=== PATIENT | male | born 1970 | race American Indian/Alaskan Native ===

== ENCOUNTER 2017-07-24 08:35 | Emergency (ER) | payer OTHER ==
[2017-07-24 09:31] LABS: Basophils % (Auto) 0.4 % (0.0-1.8); Eosinophils % (Auto) 2.2 % (0.0-4.3); Hematocrit 42.6 % (35.5-45.6); Hemoglobin 14.8 gm/dl (11.8-15.2); Mean Corpuscular HGB Conc 35 % (32-34); Mean Corpuscular Hemoglobin 33 pg (28-32); Mean Corpuscular Volume 96 fl (84-94); Platelet Count 259 K/mm3 (140-440); Red Blood Count 4.45 M/mm3 (3.65-5.03); Red Cell Distribution Width 13.1 % (13.2-15.2); White Blood Count 7.4 K/mm3 (4.5-11.0)
[2017-07-24 09:49] LABS: Anion Gap 22 mmol/L; BUN/Creatinine Ratio 16; Blood Urea Nitrogen 26 mg/dL (9-20); Calcium 9.4 mg/dL (8.4-10.2); Carbon Dioxide 28 mmol/L (22-30); Chloride 96.2 mmol/L (98-107); Glucose 128 mg/dL (75-100); Potassium 4.3 mmol/L (3.6-5.0); Sodium 142 mmol/L (137-145)
--- NOTE | 2017-07-24 10:29 | Emergency Department Report ---
Chief Complaint: Dizziness Stated Complaint: DIZZINESS Time Seen by Provider: 07/24/17 10:24 - [facility] History of Present Illness: Patient is a 46-year-old male with a recent diagnosis of high blood pressure while he was incarcerated presents to ED complaining of intermittent dizziness earlier today while he was at work. Patient states he was working when the first incidence of dizziness occurred. Patient states he sat down for a while bottle of water and his dizziness did not resolve so he was told to come to the ED. patient states he takes no medication and states that he was given some blood pressure medication while he was in [facility] in the last He took was Sunday. Patient states he was unaware of what he was being given so he is unable to get the medication. He denies fever/chills/nausea/vomiting/abdominal pain/chest pain/shortness of breath or headache - ROS Review of Systems: As noted in HPI - Exam Vital Signs: Vital Signs 07/24/17 08:47 Temperature 96.4 F L Pulse Rate 76 Respiratory 16 Rate Blood Pressure 104/63 O2 Sat by Pulse 99 Oximetry Physical Exam: GENERAL: Alert and oriented x3, no apparent distress, Normal Gait, atraumatic. EYES: Extra ocular muscles are intact. Pupils are equal, round, and reactive to light and accommodation, no nystagmus visualized LUNGS: Symetrical with respiration, HEART: S1, S2 present, regular rate and rhythm, no rubs, no gallops. Non tender to palpation NEUROLOGIC: The patient is cooperative with no focal neurologic deficits. Normal speech. , No facial droop, SKIN: Warm and dry, No lesions, No ulceration or induration present. MSE screening note: Focused history and physical exam performed. Due to findings the following was ordered: ED Medical Decision Making - Lab Data Result diagrams: 07/24/17 09:02 07/24/17 09:02 - Medical Decision Making Patient is in no acute distress Labs ordered. Patient was seen by the physician. ED Disposition for MSE Condition: Stable Referrals: PRIMARY CARE, [Primary Care Provider] - 3-5 Days
[2017-07-24] MEDS ORDERED: NACL 0.9% 1000 ML 1,000 ML IV ONE (11:11)
--- NOTE | 2017-07-24 11:24 | Emergency Department Report ---
ED Dizziness HPI - General Chief Complaint: Dizziness Stated Complaint: DIZZINESS Time Seen by Provider: 07/24/17 10:24 Source: patient, EMS Mode of arrival: Ambulatory Limitations: No Limitations - History of Present Illness Initial Comments: 71-zif[place]-oyk-year-old male with no significant past medical history cystoscopy lightheadedness episode while at work. Patient works on his feet. He was stacking light boxes and began to feel lightheaded. Patient drank a bottle water thickened that will help his symptoms that they continue. Patient had to sit down and was pale. 2 episodes of vomiting while. In route they should complain of a pressure and a knot sensation on the left upper quadrant. It is described as feeling like something is 2l of his chest. That has since resolved and patient is asymptomatic. Patient denies any recent melena, hematochezia, diarrhea, fever, or poor by mouth intake. - Related Data Allergies Allergy/AdvReac Type Severity Reaction Status Date / Time No Known Allergies Allergy Unverified 07/24/17 08:54 ED Review of Systems ROS: Stated complaint: DIZZINESS Other details as noted in HPI Comment: All other systems reviewed and negative Other: Constitutional: No fevers chills Eyes: No eye pain visual changes ENT: No ear pain or throat pain Neck: Denies pain Respiratory: Denies cough wheezing shortness of breath Cardiovascular: Denies chest pain, palpitation GI: Denies abdominal pain, nausea, vomiting, diarrhea : Denies dysuria Musculoskeletal: Denies back pain Skin: Denies rash, lesions, erythema Neurologic: Denies headache, numbness, weakness Psychiatric: Denies suicidal ideation, hallucinations ED Past Medical Hx - Past Medical History Previous Medical History?: No - Surgical History Past Surgical History?: No - Social History Smoking Status: Current Every Day Smoker Substance Use Type: None ED Physical Exam - General Limitations: No Limitations - Other Other exam information: General: No limitations, patient is alert in no acute distress Head exam: Atraumatic, normocephalic Eyes exam: Normal appearance, pupils equal reactive to light, extraocular movements intact ENT: Moist mucous membrane Neck exam: Normal inspection, full range of motion, no meningismus nontender Respiratory exam: Clear to auscultation bilateral, no wheezes, rales, crackles Cardiovascular: Normal rate and rhythm, normal heart sounds Abdomen: Soft, nondistended, and nontender, with normal bowel sounds, no rebound, or guarding Extremity: Full range of motion normal inspection no deformity Back: Normal Inspection, full range of motion, no tenderness Neurologic: Alert, oriented x3, cranial nerves intact, no motor or sensory deficit Psychiatric: normal affect, normal mood Skin: Warm, dry, intact ED Course Vital Signs 07/24/17 07/24/17 07/24/17 08:47 11:05 11:21 Temperature 96.4 F L 98.1 F Pulse Rate 76 95 H Pulse Rate [ 76 Lying] Respiratory 16 14 Rate Blood Pressure 104/63 Blood Pressure 108/75 [Lying] Blood Pressure 108/75 [Right] O2 Sat by Pulse 99 100 Oximetry 07/24/17 11:32 Temperature Pulse Rate 90 Pulse Rate [ Lying] Respiratory 14 Rate Blood Pressure Blood Pressure [Lying] Blood Pressure [Right] O2 Sat by Pulse 98 Oximetry - Reevaluation(s) Reevaluation #1: 07/24/17 14:02 Positive orthostatic vital signs with significant increase in heart rate with standing. Patient received 1 L normal saline in the ED ED Medical Decision Making - Lab Data Result diagrams: 07/24/17 09:02 07/24/17 09:02 Lab Results 07/24/17 07/24/17 Range/Units 09:02 09:02 WBC 7.4 (4.5-11.0) K/mm3 RBC 4.45 (3.65-5.03) M/mm3 Hgb 14.8 (11.8-15.2) gm/dl Hct 42.6 (35.5-45.6) % MCV 96 H (84-94) fl MCH 33 H (28-32) pg MCHC 35 H (32-34) % RDW 13.1 L (13.2-15.2) % Plt Count 259 (140-440) K/mm3 Lymph % (Auto) 16.8 (13.4-35.0) % [place] % (Auto) 7.4 H (0.0-7.3) % Eos % (Auto) 2.2 (0.0-4.3) % Baso % (Auto) 0.4 (0.0-1.8) % Lymph # 1.2 (1.2-5.4) K/mm3 [place] # 0.5 (0.0-0.8) K/mm3 Eos # 0.2 (0.0-0.4) K/mm3 Baso # 0.0 (0.0-0.1) K/mm3 Seg Neutrophils % 73.2 H (40.0-70.0) % Seg Neutrophils # 5.4 (1.8-7.7) K/mm3 Sodium 142 (137-145) mmol/L Potassium 4.3 (3.6-5.0) mmol/L Chloride 96.2 L (98-107) mmol/L Carbon Dioxide 28 (22-30) mmol/L Anion Gap 22 mmol/L BUN 26 H (9-20) mg/dL Creatinine 1.6 H (0.8-1.5) mg/dL Estimated GFR 57 ml/min BUN/Creatinine Ratio 16 % Glucose 128 H (75-100) mg/dL Calcium 9.4 (8.4-10.2) mg/dL Troponin T < 0.010 (0.00-0.029) ng/mL - EKG Data -: EKG Interpreted by Mt EKG shows normal: sinus rhythm, axis (qrs 84 ), QRS complexes (461, qtc 505), ST -T waves (no stemi/t wave inv, pvc's) Rate: normal - Medical Decision Making Patient had positive orthostatic vital signs as indicated by increased heart rate with standing. The patient also had dark discoloration a urine with elevated specific gravity and ketones indicating dehydration. Patient has mild renal insufficiency which could be secondary to dehydration. Patient received 1 L normal saline in the ED. He reports feeling better and is asymptomatic. He denies urinary symptoms, dysuria, penile discharge, or testicular pain. Patient recovered with antibiotic for several days. Encouraging to drink plenty of fluids. PMD and nephrology follow-up suggest due to mild renal insufficiency. - Differential Diagnosis dehydration, anemia, arrhythmia, vasovagal Critical Care Time: No Critical care attestation.: If time is entered above; I have spent that time in minutes in the direct care of this critically ill patient, excluding procedure time. ED Disposition Clinical Impression: Dehydration, Lightheaded, Mild renal insufficiency Disposition: DC-01 TO HOME OR SELFCARE Is pt being admited?: No Does the pt Need Aspirin: No Condition: Stable Instructions: Dehydration (ED), Impaired Kidney Function (ED) Additional Instructions: Continued to drink plenty of fluids while at home. Follow up with a primary care doctor and kidney specialist for further monitoring of your mildly abnormal kidney function. Take a copy of the laboratory results provided to you follow-up visits. Please return if symptoms worsen. Referrals: SUPA WAGONER MD [Staff Physician] - 2-3 Days (Kidney specialist) [facility] [Provider Group] - 2-3 Days (Primary care clinic) Time of Disposition: 14:11
[2017-07-24 12:28] LABS: Urine Drugs of Abuse Note Disclamer
[2017-07-24 12:48] LABS: Bacteria,Urine 1+ /HPF (Negative); Bilirubin,Urine NEG (Negative); Blood,Urine NEG (Negative); Granular Casts,Urine 1 /LPF; Ketones,Urine TR mg/dL (Negative); Leukocyte Esterase,Urine NEG (Negative); Mucus,Urine 3+ /HPF; Nitrite,Urine NEG (Negative)
[2017-07-24] MEDS ORDERED: MACROBID PO ONE (14:14)
[2017-07-24 14:31] VITALS: BP 116/80
== END 2017-07-24 14:31 | disposition home or self-care (01) ==
LOC: ED 08:35
DX: E86.0 Dehydration (principal); R42 Dizziness and giddiness; N28.9 Disorder of kidney and ureter, unspecified; F17.200 Nicotine dependence, unspecified, uncomplicated
CPT/HCPCS: 36415; 80048; 80307; 81001; 83735; 84484; 85025; 93005; 93010; 96360; 99284; J7030

== ENCOUNTER 2019-05-04 09:02 | Emergency (ER) | payer SELFPAY ==
[2019-05-04 09:25] VITALS: BP 144/92
[2019-05-04] MEDS ORDERED: NACL 0.9% 1000 ML 1,000 ML IV ONE (09:26)
--- NOTE | 2019-05-04 09:41 | Emergency Department Report ---
ED Dizziness HPI - General Chief Complaint: Dizziness Stated Complaint: GENERAL WEAKNESS Time Seen by Provider: 05/04/19 09:18 Source: patient Mode of arrival: Stretcher Limitations: No Limitations - History of Present Illness Initial Comments: 48-year-old male presents to ED with complaint of dizziness, lightheadedness. Patient states he ran at work this morning and began to feel lightheaded, as if he is going to pass out. Patient states he has a history of hypertension, not currently on blood pressure medication, assumed his blood pressure might be elevated. Patient states a coworker gave him a banana to eat, stating that bananas are good for high blood pressure. Patient states he ate a banana, but vomited afterwards. Denies feeling nauseated prior to eating the banana. Patient denies headache, chest pain, shortness of breath, diarrhea, fever, abdominal pain. Patient denies tobacco, alcohol, drug use. MD Complaint: dizziness, lightheadedness -: This morning Description: lightheadedness History of Same: No History of Trauma: No Severity: moderate Improves With: nothing Worsens With: nothing Associated Symptoms: denies: ataxia, chest pain, fever/chills, shortness of breath - Related Data Previous Rx's Medication Instructions Recorded Last Taken Type Nitrofurantoin Monohyd/M-Cryst 100 mg PO BID #10 capsule 07/24/17 Unknown Rx [Macrobid 100 mg Capsule] Amlodipine Besylate [Norvasc] 5 mg PO QDAY #30 tablet 05/04/19 Unknown Rx Naproxen [Naprosyn] 500 mg PO BID #20 tablet 05/04/19 Unknown Rx Allergies Allergy/AdvReac Type Severity Reaction Status Date / Time No Known Allergies Allergy Unverified 07/24/17 08:54 ED Review of Systems ROS: Stated complaint: GENERAL WEAKNESS Other details as noted in HPI Comment: All other systems reviewed and negative Constitutional: denies: chills, fever ENT: dental pain Respiratory: denies: shortness of breath Cardiovascular: denies: chest pain Gastrointestinal: vomiting. denies: abdominal pain, nausea, diarrhea Neurological: denies: headache, weakness, numbness, abnormal gait, vertigo ED Past Medical Hx - Past Medical History Previous Medical History?: Yes Hx Hypertension: Yes Hx Asthma: Yes (childhood) - Surgical History Past Surgical History?: No - Social History Smoking Status: Current Every Day Smoker Substance Use Type: None - Medications Home Medications: Home Medications Medication Instructions Recorded Confirmed Last Taken Type Nitrofurantoin Monohyd/M-Cryst 100 mg PO BID #10 capsule 07/24/17 Unknown Rx [Macrobid 100 mg Capsule] Amlodipine Besylate [Norvasc] 5 mg PO QDAY #30 tablet 05/04/19 Unknown Rx Naproxen [Naprosyn] 500 mg PO BID #20 tablet 05/04/19 Unknown Rx ED Physical Exam - General Limitations: No Limitations General appearance: alert, in no apparent distress - Head Head exam: Present: atraumatic, normocephalic - Eye Eye exam: Present: normal appearance, PERRL, EOMI - ENT ENT exam: Present: mucous membranes moist - Neck Neck exam: Present: normal inspection - Respiratory Respiratory exam: Present: normal lung sounds bilaterally. Absent: respiratory distress - Cardiovascular Cardiovascular Exam: Present: regular rate, normal rhythm - GI/Abdominal GI/Abdominal exam: Present: soft. Absent: distended, tenderness - Extremities Exam Extremities exam: Present: normal inspection. Absent: pedal edema, calf tenderness - Neurological Exam Neurological exam: Present: alert, oriented X3, CN II-XII intact. Absent: motor sensory deficit - Psychiatric Psychiatric exam: Present: normal affect, normal mood - Skin Skin exam: Present: warm, dry, intact, normal color ED Course Vital Signs 05/04/19 05/04/19 09:14 09:18 Temperature 98.1 F Pulse Rate 84 Pulse Rate [ 84 Lying] Pulse Rate [ 80 Sitting] Pulse Rate [ 88 Standing] Respiratory 16 Rate Blood Pressure 150/99 Blood Pressure 144/92 [Lying] Blood Pressure 149/97 [Sitting] Blood Pressure 120/98 [Standing] O2 Sat by Pulse 98 Oximetry ED Medical Decision Making - Lab Data Result diagrams: 05/04/19 09:39 05/04/19 09:27 - EKG Data -: EKG Interpreted by Me EKG shows normal: sinus rhythm, axis, ST-T waves - EKG Data When compared to previous EKG there are: no significant change (compared to 07/2017) Interpretation: other (RBBB present) - Radiology Data Radiology results: report reviewed, image reviewed - Medical Decision Making 48 yo M with dizziness, lightheadedness while at work. Pt has no neuro deficits on exam. Mildly hypertensive w/ initial BP 150/99. Pt did appear to be orthostatic with a drop in SBP from 149 to 120 and HR increase from 80 to 88 with standing. IV fluids given. Labs normal. EKG shows RBBB with no ST changes. RBBB is stable from 2017. Pt reports feeling much better following the IV fluids. BP 160s/90s currently. Has hx of HTN, not currently on any medication. Will prescribe norvasc. Advised outpt follow-up. Return precautions given. - Differential Diagnosis dehydration, arrythmia, infection Critical care attestation.: If time is entered above; I have spent that time in minutes in the direct care of this critically ill patient, excluding procedure time. ED Disposition Clinical Impression: Dizziness Disposition: DC- TO HOME OR SELFCARE Is pt being admited?: No Condition: Stable Instructions: Hypertension (ED), Near Syncope (ED), Lightheadedness (ED), Toothache (ED) Prescriptions: Naproxen [Naprosyn] 500 mg PO BID #20 tablet Amlodipine Besylate [Norvasc] 5 mg PO QDAY #30 tablet Referrals: RODRÍGUEZ AVITIA MD [Primary Care Provider] - 3-5 Days [facility] [Outside] - 3-5 Days [facility] [Outside] - 3-5 Days Time of Disposition: 10:57
--- NOTE | 2019-05-04 09:47 | XRay Report ---
CHEST 1 VIEW INDICATION / CLINICAL INFORMATION: weakness. COMPARISON: None available. FINDINGS: SUPPORT DEVICES: None. HEART / MEDIASTINUM: No significant abnormality. LUNGS / PLEURA: No significant pulmonary or pleural abnormality. No pneumothorax. ADDITIONAL FINDINGS: No significant additional findings. IMPRESSION: 1. No acute findings. Signer Name: Hattie Lara MD Signed: 05/04/2019 9:42 AM Workstation Name: [id number]
[2019-05-04 09:49] LABS: Basophils % (Auto) 0.4 % (0.0-1.8); Eosinophils # (Auto) 0.2 K/mm3 (0.0-0.4); Eosinophils % (Auto) 2.8 % (0.0-4.3); Hematocrit 41.3 % (35.5-45.6); Hemoglobin 14.1 gm/dl (11.8-15.2); Lymphocytes # (Auto) 0.6 K/mm3 (1.2-5.4); Lymphocytes % (Auto) 7.8 % (13.4-35.0); Mean Corpuscular HGB Conc 34 % (32-34); Mean Corpuscular Volume 97 fl (84-94); Monocytes # (Auto) 0.7 K/mm3 (0.0-0.8); Monocytes % (Auto) 8.3 % (0.0-7.3); Platelet Count 264 K/mm3 (140-440); Red Blood Count 4.27 M/mm3 (3.65-5.03); Red Cell Distribution Width 13.8 % (13.2-15.2)
[2019-05-04 10:01] LABS: INR 1.14 (0.87-1.13); Partial Thromboplastin Time 21.3 Sec. (24.2-36.6)
--- NOTE | 2019-05-04 10:06 | Cat Scan Report ---
CT HEAD WITHOUT CONTRAST INDICATION : dizziness. TECHNIQUE: Axial, coronal and sagittal CT imaging was performed from the skull apex through the skul l base without contrast. All CT scans at this location are performed using CT dose reduction for ALA RA by means of automated exposure control. COMPARISON: None available. FINDINGS: PARENCHYMA: No mass, midline shift, hemorrhage, extraaxial collection or acute territorial infarctio n. VENTRICLES: Symmetric and normal in size. SOFT TISSUES: Soft tissues including the orbits appear normal. BONES: No acute osseous abnormality. SINUSES: No significant abnormality. ADDITIONAL FINDINGS: None. IMPRESSION: No acute intracranial abnormality. Signer Name: Dontrell Gustafson MD Signed: 05/04/2019 10:01 AM Workstation Name: [id number]
[2019-05-04 10:11] LABS: BUN/Creatinine Ratio 11; Blood Urea Nitrogen 13 mg/dL (9-20); Hemolysis Index 9
[2019-05-04] MEDS ORDERED: IBUPROFEN PO ONE (11:16)
[2019-05-04] MEDS ORDERED: IBUPROFEN ONE (11:17)
== END 2019-05-04 11:17 | disposition home or self-care (01) ==
LOC: ED 09:02
DX: R42 Dizziness and giddiness (principal); I10 Essential (primary) hypertension; J45.909 Unspecified asthma, uncomplicated; F17.200 Nicotine dependence, unspecified, uncomplicated
CPT/HCPCS: 36415; 70450; 71045; 80048; 84484; 85025; 85610; 85730; 93005; 93010; 96360; 99285; J7030

== ENCOUNTER 2020-12-10 21:31 | Emergency (ER) | payer OTHER ==
[2020-12-10 23:17] VITALS: BP 138/96
--- NOTE | 2020-12-10 23:55 | XRay Report ---
RIGHT SHOULDER 3 VIEWS INDICATION / CLINICAL INFORMATION: right shoulder pain COMPARISON: None available. FINDINGS: BONES / JOINT(S): No acute fracture or subluxation. No significant arthritis. SOFT TISSUES: No significant abnormality. ADDITIONAL FINDINGS: None. Signer Name: Harsha Mujica MD Signed: 12/10/2020 11:51 PM Workstation Name: [id number]
--- NOTE | 2020-12-11 00:27 | Emergency Department Report ---
ED Upper Extremity Inj HPI - General Chief Complaint: Shoulder Injury Stated Complaint: FALL Source: patient Mode of arrival: Ambulatory Limitations: No Limitations - History of Present Illness Initial Comments: 50-year-old -[place] male presents to the emergency room complaining of right shoulder pain. Patient states his pain has been going on for over a month. Patient reports he been taken Tylenol. He states he had a fall over a month ago. This is his first time being seen for this. He denies any limitations to his shoulder. Denies any weakness. Has a history of hypertension blood pressure stable in triage. MD Complaint: Injury to:: right, shoulder Onset/Timin -: month(s) Other Extremity Injury: Shoulder: Right Other Injuries: none Handedness: right Improves With: none Worsens With: none Context: fall (Over a month ago) Associated Symptoms: denies other symptoms Treatments Prior to Arrival: other (Tylenol) - Related Data Previous Rx's Medication Instructions Recorded Last Taken Type Nitrofurantoin Monohyd/M-Cryst 100 mg PO BID #10 capsule 07/24/17 Unknown Rx [Macrobid 100 mg Capsule] Amlodipine Besylate [Norvasc] 5 mg PO QDAY #30 tablet 05/04/19 Unknown Rx Naproxen [Naprosyn] 500 mg PO BID #20 tablet 05/04/19 Unknown Rx Allergies Allergy/AdvReac Type Severity Reaction Status Date / Time No Known Allergies Allergy Unverified 07/24/17 08:54 ED Review of Systems ROS: Stated complaint: FALL Other details as noted in HPI ED Past Medical Hx - Past Medical History Previous Medical History?: Yes Hx Hypertension: Yes Hx Asthma: Yes (childhood) - Surgical History Past Surgical History?: No - Social History Smoking Status: Current Every Day Smoker Substance Use Type: None - Medications Home Medications: Home Medications Medication Instructions Recorded Confirmed Last Taken Type Nitrofurantoin Monohyd/M-Cryst 100 mg PO BID #10 capsule 07/24/17 Unknown Rx [Macrobid 100 mg Capsule] Amlodipine Besylate [Norvasc] 5 mg PO QDAY #30 tablet 05/04/19 Unknown Rx Naproxen [Naprosyn] 500 mg PO BID #20 tablet 05/04/19 Unknown Rx ED Physical Exam - General Limitations: No Limitations General appearance: alert, in no apparent distress - Head Head exam: Present: atraumatic, normocephalic - Eye Eye exam: Present: normal appearance - ENT ENT exam: Present: mucous membranes moist - Neck Neck exam: Present: normal inspection - Respiratory Respiratory exam: Present: normal lung sounds bilaterally. Absent: chest wall tenderness, accessory muscle use - Cardiovascular Cardiovascular Exam: Present: regular rate, normal rhythm. Absent: systolic murmur, diastolic murmur, rubs, gallop - Expanded Upper Extremity Exam Right Shoulder Exam: Present: normal inspection, full ROM. Absent: tenderness, swelling, abrasion, deformity, crepidus, dislocation, tenderness over AC joint Upper Arm exam: Present: normal inspection, full ROM. Absent: tenderness, swelling, crepidus Elbow exam: Present: normal inspection, full ROM. Absent: tenderness Forearm Wrist exam: Present: normal inspection, full ROM. Absent: tenderness Hand Wrist exam: Present: normal inspection. Absent: full ROM, tenderness - Back Exam Back exam: Present: normal inspection, full ROM - Neurological Exam Neurological exam: Present: alert, oriented X3, normal gait - Psychiatric Psychiatric exam: Present: normal affect, normal mood - Skin Skin exam: Present: warm, dry, intact, normal color. Absent: rash ED Course Vital Signs 12/10/20 23:00 Temperature 98.2 F Pulse Rate 62 Respiratory 18 Rate Blood Pressure 138/96 O2 Sat by Pulse 100 Oximetry ED Medical Decision Making - Radiology Data Radiology results: report reviewed [facility] [address] [place] [address] XRay Report Signed Patient: TAB BLANCHARD MR#: [id number] : 1970 Acct:[id number] Age/Sex: 50 / M ADM Date: 12/10/20 Loc: ED Attending Dr: Ordering Physician: JAQUI BURTON MD Date of Service: 12/10/20 Procedure(s): XR shoulder 2+V RT Accession Number(s): [id number] cc: JAQUI BURTON MD Fluoro Time In Minutes: RIGHT SHOULDER 3 VIEWS INDICATION / CLINICAL INFORMATION: right shoulder pain COMPARISON: None available. FINDINGS: BONES / JOINT(S): No acute fracture or subluxation. No significant arthritis. SOFT TISSUES: No significant abnormality. ADDITIONAL FINDINGS: None. Signer Name: Harsha Mujica MD Signed: 12/10/2020 11:51 PM Workstation Name: [id number] Transcribed By: SS Dictated By: Harsha Mujica MD Electronically Authenticated By: Harsha Mujica MD Signed Date/Time: 12/10/202350 DD/ 49 TD/TT: - Medical Decision Making 50-year-old -[place] male presents to the emergency room complaining of right shoulder pain. Patient states his pain has been going on for over a month. Patient reports he been taken Tylenol. He states he had a fall over a month ago. This is his first time being seen for this. He denies any limitations to his shoulder. Denies any weakness. Has a history of hypertension blood pressure stable in triage. X-ray of right shoulder shows no acute abnormalities. Discussed with patient to continue with Tylenol ibuprofen or Aleve. Discussed with patient to follow-up with an orthopedic provider I will provide referral. Patient verbalized understanding. Critical care attestation.: If time is entered above; I have spent that time in minutes in the direct care of this critically ill patient, excluding procedure time. ED Disposition Clinical Impression: Right shoulder pain Disposition: DC-01 TO HOME OR SELFCARE Is pt being admited?: No Does the pt Need Aspirin: No Condition: Stable Instructions: Shoulder Pain, [id number] Additional Instructions: X-ray of right shoulder shows no abnormalities. No dislocation no fracture. I do recommend you follow-up with an orthopedic provider as they may provide further testing. Continue with ibuprofen Tylenol or Aleve for pain management. Referrals: ALIVIA ESCUDEROINDIANA MD LUIS FERNANDO [Primary Care Provider] - 3-5 Days GLENYS HERNANDEZ MD [Staff Physician] - 3-5 Days
== END 2020-12-11 00:35 | disposition home or self-care (01) ==
LOC: ED 21:31
DX: M25.511 Pain in right shoulder (principal); I10 Essential (primary) hypertension; J45.909 Unspecified asthma, uncomplicated; F17.200 Nicotine dependence, unspecified, uncomplicated; Z79.899 Other long term (current) drug therapy